=== PATIENT | male | born 1950 | race Caucasian/White ===

== ENCOUNTER 2018-11-23 00:09 | Emergency (ER) | payer OTHER ==
[~2018-11-23] VITALS: Ht 182.9 cm; Wt 80.7 kg
[~2018-11-23 00:09] MED LIST: GLYB1POW; NAPROXEN; VICODIN
[2018-11-23 02:42] LABS: INR 1.04 (0.9-1.15); Partial Thromboplastin Time 30.1 sec (23.64-32.05)
[2018-11-23 04:00] VITALS: BP 169/78
== END 2018-11-23 04:28 | disposition home or self-care (01) ==
LOC: ER 00:15
DX: T82.898A Other specified complication of vascular prosthetic devices, implants and grafts, initial encounter (principal); E11.9 Type 2 diabetes mellitus without complications; I10 Essential (primary) hypertension; Z45.2 Encounter for adjustment and management of vascular access device; Z87.891 Personal history of nicotine dependence; Z88.0 Allergy status to penicillin
CPT/HCPCS: 36415; 36556; 85610; 85730

== ENCOUNTER 2020-04-02 02:31 | Inpatient (IN) | payer OTHER ==
[~2020-04-02] VITALS: Ht 182.9 cm; Wt 73.8 kg
[2020-04-02 07:20] LABS: Albumin 3.3 g/dL (3.4-5.0); Calcium 8.8 mg/dL (8.5-10.1); Potassium 3.8 mmol/L (3.5-5.1)
[2020-04-02 07:22] LABS: Basophils # (auto) 0 10 ^3/uL (0-0.2); Basophils % (auto) 0.2 % (0.0-2.0); Eosinophils # (auto) 0 10 ^3/uL (0-0.8); Hematocrit 48.7 % (41.0-53.0); Hemoglobin 15.7 g/dL (13.5-17.5); Lymphocytes # (auto) 0.4 10 ^3/uL (0.4-5.4); Lymphocytes % (auto) 7.2 % (10.0-50.0); Mean Corpuscular Hemoglobin 26.4 pg (28.0-32.0); Mean Corpuscular Hgb Conc. 32.2 g/dL (32.0-36.0); Mean Corpuscular Volume 81.8 fL (80.0-100.0); Monocytes # (auto) 0.8 10 ^3/uL (0-1.3); Monocytes % (auto) 12.1 % (0.0-12.0); Neutrophils % (auto) 80.5 % (37.0-80.0); Nucleated Red Blood Cells % 0.2 %; Platelet Count (auto) 182 10^3/uL (140-450); Red Blood Cells 5.95 10^6/uL (4.5-5.90); Red Cell Distribution Width 14.1 % (11.8-14.3); White Blood Cell 6.2 10^3/uL (4.4-10.8)
[2020-04-02 07:25] LABS: BUN/Creatinine Ratio 12.2; Bilirubin, Total 0.7 mg/dL (0.2-1.0); Total Protein 7.7 g/dL (6.4-8.2)
[2020-04-02] MEDS ORDERED: SODIUM CHLORIDE 0.9% 1,000 ML IV ONE (08:15)
[2020-04-02] MEDS ORDERED: ONDANSETRON HCL 4 MG/2 ML VIAL IV ONE (08:15)
[2020-04-02] MEDS ORDERED: ENOXAPARIN SOD 80 MG/0.8ML SYRINGE SC ONE (11:00)
[2020-04-02] MEDS ORDERED: NITROGLYCERIN 0.4 MG SL TAB SL PRN (11:30)
[2020-04-02] MEDS ORDERED: MORPHINE SULF INJ 2 MG/ML SYRINGE 1ML IV PRN (11:30)
[2020-04-02] MEDS ORDERED: REMDESIVIR PER PHARMACY 0 ML IV SCH (11:30)
[2020-04-02] MEDS ORDERED: diphenhdrAMINE HCL 50 MG/1 ML VL IV PRN (11:30)
[2020-04-02] MEDS ORDERED: TEMAZEPAM 15 MG CAP PO PRN (12:00)
[2020-04-02] MEDS ORDERED: ACETAMINOPHEN 500 MG TAB PO PRN (12:00)
[2020-04-02] MEDS ORDERED: PROMETHAZINE HCL 25 MG/ML 1ML IV PRN (12:00)
[2020-04-02] MEDS ORDERED: LACTULOSE 20Gm/30ML SOLN PO PRN ×2 (12:00→18:30)
[2020-04-02] MEDS ORDERED: traMADol HCL 50 MG TAB PO PRN (12:00)
[2020-04-02] MEDS ORDERED: DEXTROSE (50%) 50ML SYRG IV PRN (12:00)
[2020-04-02] MEDS ORDERED: HYDR-531 PO (12:29)
[2020-04-02] MEDS ORDERED: ATOR10TA PO (12:29)
[2020-04-02] MEDS: SODIUM CHLORIDE 0.9% 1,000 ML IV SCH (13:11)
[2020-04-02] MEDS: InsuLIN REG 1unit/0.01ml Soln (100units/ml) SC SCH ×2 (17:28→22:59)
[2020-04-02] MEDS: ACCU-CHEK COMFORT CURVE STRIP VI SCH ×2 (17:28→22:46)
[2020-04-02] MEDS ORDERED: ASPirin 81 mg TAB PO ONE (18:30)
[2020-04-02] MEDS: ALBUTEROL SULF HFA 90MCG INH 200DOSE IN PRN (19:14)
[2020-04-02] MEDS: BUDESONIDE (INHALATION) 180 MCG IH IN SCH (19:14)
[2020-04-02] MEDS ORDERED: ENOXAPARIN SOD 40 MG/0.4 ML SYRINGE SC SCH (22:00)
[2020-04-02] MEDS: ENOXAPARIN SOD 80 MG/0.8ML SYRINGE SC SCH (22:47)
[2020-04-02] MEDS: ATORVASTATIN 20 MG TAB PO SCH (22:47)
[2020-04-02] MEDS: FAMOTIDINE (10MG/ML) 2ML VL IV SCH (22:47)
[2020-04-02 23:52] VITALS: BP 142/81
[2020-04-03] VITALS (7 sets, daily range): BP systolic 155–187; BP diastolic 70–107
[2020-04-03] MEDS: SODIUM CHLORIDE 0.9% 1,000 ML IV SCH (01:20)
[2020-04-03 05:32] LABS: Basophils # (auto) 0 10 ^3/uL (0-0.2); Basophils % (auto) 0.3 % (0.0-2.0); Eosinophils # (auto) 0 10 ^3/uL (0-0.8); Eosinophils % (auto) 0.2 % (0.0-7.0); Hematocrit 43.4 % (41.0-53.0); Hemoglobin 14.2 g/dL (13.5-17.5); Lymphocytes # (auto) 0.7 10 ^3/uL (0.4-5.4); Lymphocytes % (auto) 13.8 % (10.0-50.0); Mean Corpuscular Hemoglobin 26.6 pg (28.0-32.0); Mean Corpuscular Hgb Conc. 32.7 g/dL (32.0-36.0); Mean Corpuscular Volume 81.3 fL (80.0-100.0); Monocytes # (auto) 0.7 10 ^3/uL (0-1.3); Monocytes % (auto) 13.8 % (0.0-12.0); Neutrophils # (auto) 3.7 10 ^3/uL (1.6-8.6); Neutrophils % (auto) 71.9 % (37.0-80.0); Platelet Count (auto) 148 10^3/uL (140-450); Red Blood Cells 5.33 10^6/uL (4.5-5.90); Red Cell Distribution Width 13.8 % (11.8-14.3); White Blood Cell 5.2 10^3/uL (4.4-10.8)
[2020-04-03] MEDS ORDERED: HYDR50TA15 PO (05:35)
[2020-04-03] MEDS ORDERED: GLYB5TAB8 PO (05:37)
[2020-04-03 05:52] LABS: Potassium 3.7 mmol/L (3.5-5.1)
[2020-04-03 06:02] LABS: Albumin 2.8 g/dL (3.4-5.0); BUN/Creatinine Ratio 13.8; Bilirubin, Total 0.6 mg/dL (0.2-1.0); Calcium 8.2 mg/dL (8.5-10.1); Total Protein 6.5 g/dL (6.4-8.2)
[2020-04-03] MEDS: ACCU-CHEK COMFORT CURVE STRIP VI SCH ×4 (06:40→21:49)
[2020-04-03] MEDS: InsuLIN REG 1unit/0.01ml Soln (100units/ml) SC SCH ×4 (06:41→21:51)
[2020-04-03] MEDS: ALBUTEROL SULF HFA 90MCG INH 200DOSE IN PRN (07:11)
[2020-04-03] MEDS: BUDESONIDE (INHALATION) 180 MCG IH IN SCH ×2 (07:11→20:00)
[2020-04-03] MEDS ORDERED: hydrALAZINE HCL 25 MG TAB PO ONE (09:45)
[2020-04-03] MEDS ORDERED: hydrALAZINE HCL 25 MG TAB PO SCH (10:00)
[2020-04-03] MEDS: ASPirin 81 mg TAB PO SCH (11:02)
[2020-04-03] MEDS: levoFLOXacin 500MG 100 ML IV SCH (11:02)
[2020-04-03] MEDS: FAMOTIDINE (10MG/ML) 2ML VL IV SCH ×2 (11:02→21:47)
[2020-04-03] MEDS: ZINC SULFATE 220mg CAP or TAB PO SCH (11:02)
[2020-04-03] MEDS: DexAMETHasone SOD PHOS 10MG/1ML VIAL INJ IV SCH (11:02)
[2020-04-03] MEDS: METOPROLOL TARTRATE 25 MG TAB PO SCH ×2 (11:03→22:00)
[2020-04-03] MEDS: ASCORBIC ACID 1,000 MG TAB PO SCH (11:04)
[2020-04-03] MEDS: CHOLECALCIFEROL (VITD3) 2,000 UNIT CAP PO SCH (11:04)
[2020-04-03] MEDS: ENOXAPARIN SOD 80 MG/0.8ML SYRINGE SC SCH ×2 (11:05→21:48)
[2020-04-03] MEDS: hydrALAZINE HCL 25 MG TAB PO SCH ×2 (16:20→22:00)
[2020-04-03] MEDS ORDERED: REMDESIVIR 200 MG in NS 210ml LOADING DOSE ADULT IV ONE (17:00)
[2020-04-03] MEDS: ATORVASTATIN 20 MG TAB PO SCH (21:48)
[2020-04-04] VITALS (10 sets, daily range): BP systolic 126–180; BP diastolic 56–93
[2020-04-04] MEDS: ALBUTEROL SULF HFA 90MCG INH 200DOSE IN PRN ×3 (01:12→23:32)
[2020-04-04] MEDS: hydrALAZINE HCL 20 MG/ML VL IV PRN ×2 (04:16→17:45)
[2020-04-04] MEDS: MORPHINE SULF INJ 2 MG/ML SYRINGE 1ML IV PRN ×4 (05:43→22:09)
[2020-04-04] MEDS: hydrALAZINE HCL 25 MG TAB PO SCH ×3 (05:43→21:57)
[2020-04-04 06:30] LABS: Basophils # (auto) 0 10 ^3/uL (0-0.2); Eosinophils # (auto) 0 10 ^3/uL (0-0.8); Neutrophils # (auto) 4.9 10 ^3/uL (1.6-8.6); Nucleated Red Blood Cells % 0.1 %
[2020-04-04 06:33] LABS: Basophils % (auto) 0.5 % (0.0-2.0); Hemoglobin 13.6 g/dL (13.5-17.5); Lymphocytes # (auto) 0.8 10 ^3/uL (0.4-5.4); Lymphocytes % (auto) 11.8 % (10.0-50.0); Mean Corpuscular Hemoglobin 26.3 pg (28.0-32.0); Mean Corpuscular Hgb Conc. 32.5 g/dL (32.0-36.0); Mean Corpuscular Volume 80.9 fL (80.0-100.0); Monocytes % (auto) 14.3 % (0.0-12.0); Neutrophils % (auto) 73.4 % (37.0-80.0); Platelet Count (auto) 166 10^3/uL (140-450); Red Blood Cells 5.19 10^6/uL (4.5-5.90); Red Cell Distribution Width 13.8 % (11.8-14.3); White Blood Cell 6.7 10^3/uL (4.4-10.8)
[2020-04-04] MEDS: ACCU-CHEK COMFORT CURVE STRIP VI SCH ×4 (06:42→21:33)
[2020-04-04 06:45] LABS: INR 1.08 (0.9-1.15); Partial Thromboplastin Time 41.5 sec (23.0-31.2)
[2020-04-04] MEDS: InsuLIN REG 1unit/0.01ml Soln (100units/ml) SC SCH ×4 (06:46→21:51)
[2020-04-04 06:51] LABS: Albumin 2.9 g/dL (3.4-5.0); BUN/Creatinine Ratio 18.8; Calcium 8.5 mg/dL (8.5-10.1); Potassium 3.8 mmol/L (3.5-5.1)
[2020-04-04 06:54] LABS: Bilirubin, Total 0.5 mg/dL (0.2-1.0); Total Protein 7.1 g/dL (6.4-8.2)
[2020-04-04] MEDS: BUDESONIDE (INHALATION) 180 MCG IH IN SCH ×2 (07:31→21:20)
[2020-04-04 08:16] LABS: Urine Bacteria NONE SEEN /hpf (None Seen); Urine Blood Negative /uL (Negative); Urine Specific Gravity 1.011 (1.001-1.035); Urine WBC <1 /hpf (0 - 3)
[2020-04-04] MEDS: DexAMETHasone SOD PHOS 10MG/1ML VIAL INJ IV SCH (09:43)
[2020-04-04] MEDS: FAMOTIDINE (10MG/ML) 2ML VL IV SCH ×2 (09:44→21:32)
[2020-04-04] MEDS: ZINC SULFATE 220mg CAP or TAB PO SCH (09:44)
[2020-04-04] MEDS: ASPirin 81 mg TAB PO SCH (09:44)
[2020-04-04] MEDS: levoFLOXacin 500MG 100 ML IV SCH (09:44)
[2020-04-04] MEDS: METOPROLOL TARTRATE 25 MG TAB PO SCH ×2 (09:44→21:55)
[2020-04-04] MEDS: ENOXAPARIN SOD 80 MG/0.8ML SYRINGE SC SCH ×2 (09:45→21:32)
[2020-04-04] MEDS: ASCORBIC ACID 1,000 MG TAB PO SCH (09:45)
[2020-04-04] MEDS: CHOLECALCIFEROL (VITD3) 2,000 UNIT CAP PO SCH (09:45)
[2020-04-04] MEDS: REMDESIVIR 100 MG in SODIUM CHL 0.9% 250 ML IV SCH (15:02)
[2020-04-04] MEDS: ATORVASTATIN 20 MG TAB PO SCH (21:32)
[2020-04-05 05:00] VITALS: BP 145/78
[2020-04-05] MEDS: hydrALAZINE HCL 25 MG TAB PO SCH ×3 (06:20→21:04)
[2020-04-05] MEDS: ACCU-CHEK COMFORT CURVE STRIP VI SCH ×4 (06:20→21:05)
[2020-04-05] MEDS: InsuLIN REG 1unit/0.01ml Soln (100units/ml) SC SCH ×4 (06:24→21:17)
[2020-04-05 07:39] LABS: Potassium 3.5 mmol/L (3.5-5.1)
[2020-04-05 07:47] LABS: Albumin 2.6 g/dL (3.4-5.0); BUN/Creatinine Ratio 17.1; Bilirubin, Total 0.7 mg/dL (0.2-1.0); Calcium 8.3 mg/dL (8.5-10.1); Total Protein 6.2 g/dL (6.4-8.2)
[2020-04-05 08:31] VITALS: BP 153/71
[2020-04-05] MEDS: ALBUTEROL SULF HFA 90MCG INH 200DOSE IN PRN ×2 (09:12→21:40)
[2020-04-05] MEDS: BUDESONIDE (INHALATION) 180 MCG IH IN SCH ×2 (09:12→21:40)
[2020-04-05] MEDS: levoFLOXacin 500MG 100 ML IV SCH (09:43)
[2020-04-05] MEDS: DexAMETHasone SOD PHOS 10MG/1ML VIAL INJ IV SCH (09:43)
[2020-04-05] MEDS: CHOLECALCIFEROL (VITD3) 2,000 UNIT CAP PO SCH (09:44)
[2020-04-05] MEDS: METOPROLOL TARTRATE 25 MG TAB PO SCH ×2 (09:44→21:05)
[2020-04-05] MEDS: ZINC SULFATE 220mg CAP or TAB PO SCH (09:44)
[2020-04-05] MEDS: ENOXAPARIN SOD 80 MG/0.8ML SYRINGE SC SCH ×2 (09:44→21:05)
[2020-04-05] MEDS: ASPirin 81 mg TAB PO SCH (09:44)
[2020-04-05] MEDS: FAMOTIDINE (10MG/ML) 2ML VL IV SCH ×2 (09:44→21:04)
[2020-04-05] MEDS: ASCORBIC ACID 1,000 MG TAB PO SCH (09:44)
[2020-04-05 13:07] VITALS: BP 147/82
[2020-04-05] MEDS ORDERED: HYDROcodone-ACET 5/325MG TAB PO PRN (14:45)
[2020-04-05] MEDS: REMDESIVIR 100 MG in SODIUM CHL 0.9% 250 ML IV SCH (15:34)
[2020-04-05 16:54] VITALS: BP 154/86
[2020-04-05] MEDS: MORPHINE SULF INJ 2 MG/ML SYRINGE 1ML IV PRN ×2 (17:13→21:21)
[2020-04-05] MEDS: ATORVASTATIN 20 MG TAB PO SCH (21:05)
[2020-04-05 22:00] VITALS: BP 182/82
[2020-04-06] MEDS: MORPHINE SULF INJ 2 MG/ML SYRINGE 1ML IV PRN ×2 (01:41→11:11)
[2020-04-06 05:45] VITALS: BP 160/79
[2020-04-06] MEDS: hydrALAZINE HCL 25 MG TAB PO SCH ×2 (06:05→14:00)
[2020-04-06] MEDS: InsuLIN REG 1unit/0.01ml Soln (100units/ml) SC SCH ×3 (06:09→17:00)
[2020-04-06] MEDS: ACCU-CHEK COMFORT CURVE STRIP VI SCH ×3 (06:10→17:00)
[2020-04-06] MEDS: BUDESONIDE (INHALATION) 180 MCG IH IN SCH (07:20)
[2020-04-06] MEDS: ALBUTEROL SULF HFA 90MCG INH 200DOSE IN PRN (07:20)
[2020-04-06 07:38] LABS: Potassium 3.4 mmol/L (3.5-5.1)
[2020-04-06 08:03] LABS: Albumin 2.6 g/dL (3.4-5.0); BUN/Creatinine Ratio 17.7; Bilirubin, Total 0.7 mg/dL (0.2-1.0); Calcium 8.4 mg/dL (8.5-10.1); Total Protein 6.2 g/dL (6.4-8.2)
[2020-04-06 08:30] VITALS: BP 159/81
[2020-04-06] MEDS: levoFLOXacin 500MG 100 ML IV SCH (11:09)
[2020-04-06] MEDS: DexAMETHasone SOD PHOS 10MG/1ML VIAL INJ IV SCH (11:09)
[2020-04-06] MEDS: FAMOTIDINE (10MG/ML) 2ML VL IV SCH (11:09)
[2020-04-06] MEDS: ENOXAPARIN SOD 80 MG/0.8ML SYRINGE SC SCH (11:10)
[2020-04-06] MEDS: ASCORBIC ACID 1,000 MG TAB PO SCH (11:10)
[2020-04-06] MEDS: ASPirin 81 mg TAB PO SCH (11:10)
[2020-04-06] MEDS: METOPROLOL TARTRATE 25 MG TAB PO SCH (11:10)
[2020-04-06] MEDS: ZINC SULFATE 220mg CAP or TAB PO SCH (11:10)
[2020-04-06] MEDS: CHOLECALCIFEROL (VITD3) 2,000 UNIT CAP PO SCH (11:10)
[2020-04-06 13:00] VITALS: BP 156/81
[2020-04-06] MEDS ORDERED: POTASSIUM CHL 20 Meq TABLET PO ONE (14:30)
[2020-04-06] MEDS: REMDESIVIR 100 MG in SODIUM CHL 0.9% 250 ML IV SCH (15:00)
[2020-04-06 15:09] VITALS: BP 156/81
[2020-04-06 16:55] VITALS: BP 162/95
== END 2020-04-06 18:28 | disposition home or self-care (01) | DRG 177 ==
LOC: EDBD 02:31 → ER 02:36 → TELE 02:37 → TELE-EAST 22:10
PROVIDERS: ADMIT Internal Medicine; ATTEND Internal Medicine
PROC: XW033E5 Introduction of Remdesivir Anti-infective into Peripheral Vein, Percutaneous Approach, New Technology Group 5 (ICD-10-PCS; 2020-04-02)
PROC: XW13325 Transfusion of Convalescent Plasma (Nonautologous) into Peripheral Vein, Percutaneous Approach, New Technology Group 5 (ICD-10-PCS; principal; 2020-04-04)
DX: U07.1 COVID-19 (principal); J12.89 Other viral pneumonia; I21.4 Non-ST elevation (NSTEMI) myocardial infarction; J96.01 Acute respiratory failure with hypoxia; N18.30 Chronic kidney disease, stage 3 unspecified; I12.9 Hypertensive chronic kidney disease with stage 1 through stage 4 chronic kidney disease, or unspecified chronic kidney disease; E11.22 Type 2 diabetes mellitus with diabetic chronic kidney disease; E78.5 Hyperlipidemia, unspecified; Z79.82 Long term (current) use of aspirin; Z87.891 Personal history of nicotine dependence; Z89.432 Acquired absence of left foot; Z88.0 Allergy status to penicillin
CPT/HCPCS: 36415; 71045; 80053; 80061; 81001; 82550; 82962; 83036; 83880; 84484; 85025; 85610; 85730; 86850; 86900; 86901; 87426; 93005; 93306; 94640; 96361; 96372; 96374; 99291; G0378; J1100; J1815; J1956; J2405; J3490